=== PATIENT | female | born 1990 ===

== ENCOUNTER 2018-02-01 15:19 | Emergency (ER) | payer SELFPAY ==
[2018-02-01 16:02] VITALS: BP 119/66
--- NOTE | 2018-02-01 18:02 | Emergency Department Report ---
ED Extremity Problem HPI - General Chief complaint: Extremity Injury, Lower Stated complaint: SWOLLEN KNEE Time Seen by Provider: 02/01/18 17:57 Source: patient, family Mode of arrival: Ambulatory Limitations: No Limitations - History of Present Illness Initial comments: Patient reports that she is having an left knee pain and ankle pain and when she woke up this morning it was swollen. She said her ankle is better but her knee swollen and painful. She said this started over the last 2 days after she started a new job and she has to walk on her feet a lot this morning. She says she woke up this morning and her knee was swollen painful pain at 7 out of 10. Pain is worse with movement and better with rest. No medication taken for pain. Denies any swelling of legs. Denies any radiation of pain. Pain is sharp and throbbing at times. Denies any trauma. Denies any fever or chills or any redness to her knee. MD Complaint: joint swelling, joint paint Onset/Timin Location: left, lower extremity, knee History of Same: No -: No myalgia, Yes arthralgia, No fever, No associated dyspnea, No associated chest pain Radiation: none Severity scale (0 -10): 8 Quality: aching, other (throbbing at times) Consistency: intermittent Improves with: rest Worsens with: weight bearing, walking, exertion Associated Symptoms: arthralgias. denies: chest pain, shortness of breath, fever, myalgias, rash - Related Data Previous Rx's Medication Instructions Recorded Last Taken Type Ibuprofen [Motrin] 600 mg PO Q8H PRN #12 tablet 02/01/18 Unknown Rx Allergies Allergy/AdvReac Type Severity Reaction Status Date / Time No Known Allergies Allergy Unverified 02/01/18 18:02 ED Review of Systems ROS: Stated complaint: SWOLLEN KNEE Other details as noted in HPI Constitutional: denies: chills, fever ENT: denies: throat pain Respiratory: denies: cough, shortness of breath, SOB with exertion, SOB at rest , stridor, wheezing Cardiovascular: denies: chest pain, palpitations, edema, syncope Gastrointestinal: denies: abdominal pain, nausea, vomiting, diarrhea Genitourinary: denies: urgency, dysuria, discharge Musculoskeletal: joint swelling, arthralgia. denies: back pain, myalgia Skin: denies: rash, lesions Neurological: denies: headache, weakness, numbness, paresthesias, abnormal gait , vertigo ED Past Medical Hx - Past Medical History Previous Medical History?: Yes Additional medical history: L2 disc compressed per pt - Surgical History Past Surgical History?: No - Family History Family history: hypertension - Social History Smoking Status: Current Every Day Smoker Substance Use Type: None, Marijuana - Medications Home Medications: Home Medications Medication Instructions Recorded Confirmed Last Taken Type Ibuprofen [Motrin] 600 mg PO Q8H PRN #12 tablet 02/01/18 Unknown Rx ED Physical Exam - General Limitations: No Limitations General appearance: alert, in no apparent distress - Head Head exam: Present: atraumatic, normocephalic, normal inspection - Eye Eye exam: Present: normal appearance, PERRL, EOMI. Absent: nystagmus, periorbital swelling, periorbital tenderness Pupils: Present: normal accommodation - ENT ENT exam: Present: normal exam, normal orophraynx, mucous membranes moist - Neck Neck exam: Present: normal inspection - Respiratory Respiratory exam: Present: normal lung sounds bilaterally. Absent: respiratory distress, chest wall tenderness - Cardiovascular Cardiovascular Exam: Present: regular rate, normal rhythm, normal heart sounds. Absent: systolic murmur, diastolic murmur - Extremities Exam Extremities exam: Present: normal inspection, full ROM, normal capillary refill , other (No cce. + 2 pulses in all extremities, no neurovascular compromise). Absent: tenderness, pedal edema, joint swelling, calf tenderness - Expanded Lower Extremity Exam Left Hip exam: Present: normal inspection, full ROM, pelvic stability. Absent: tenderness, swelling, abrasion, laceration, ecchymosis, deformity, crepidus, dislocation, erythema, external rotation, internal rotation, shortening Upper Leg exam: Present: normal inspection, full ROM. Absent: tenderness, swelling, abrasion, laceration, ecchymosis, deformity, crepidus, dislocation, erythema Knee exam: Present: normal inspection, full ROM, full knee extension. Absent: tenderness, swelling, abrasion, laceration, ecchymosis, deformity, crepidus, dislocation, erythema, effusion, pain w/ pronation/supination, posterior draw sign, pain/laxity with valgus, pain/laxity with varus Lower Leg exam: Present: normal inspection, full ROM. Absent: tenderness, swelling, abrasion, laceration, ecchymosis, deformity, crepidus, dislocation, erythema, palpable cord, Sudarshan's sign Ankle exam: Present: normal inspection, full ROM. Absent: tenderness, swelling , abrasion, laceration, ecchymosis, deformity, crepidus, dislocation, erythema, anterior draw sign Foot/Toe exam: Present: normal inspection, full ROM. Absent: tenderness, swelling, abrasion, laceration, ecchymosis, deformity, crepidus, dislocation, erythema, amputation, puncture wound, foreign body, calcaneal tenderness, tenderness at base of 5th metatarsal, nail avulsion, subungual hematoma Neuro vascular tendon exam: Present: no vascular compromise. Absent: pulse deficit, abnormal cap refill, motor deficit, sensory deficit, tendon deficit, extremity cold to touch, pallor, abnormal 2-point discrimination, decreased fine /light touch, foot drop, peroneal nerve deficit, significant pain with passive ROM of distal joint Gait: Positive: observed and normal - Back Exam Back exam: Present: normal inspection, full ROM, other (ambulates without any difficulties). Absent: tenderness, CVA tenderness (R), CVA tenderness (L), muscle spasm, paraspinal tenderness, vertebral tenderness, rash noted - Neurological Exam Neurological exam: Present: alert, oriented X3, normal gait, reflexes normal. Absent: motor sensory deficit - Psychiatric Psychiatric exam: Present: normal affect, normal mood - Skin Skin exam: Present: warm, dry, intact, normal color. Absent: rash ED Course Vital Signs 02/01/18 15:55 Temperature 98.5 F Pulse Rate 76 Respiratory 17 Rate Blood Pressure 119/66 O2 Sat by Pulse 99 Oximetry - Reevaluation(s) Reevaluation #1: 02/01/18 20:21 Patient given Motrin 800 mg by mouth for left knee pain. Pain has resolved ED Medical Decision Making - Radiology Data Radiology results: report reviewed X-ray three-view left knee dictated by radiologist and report reviewed by myself. Please see report below. Patient: LOGAN MULLEN MR#: [id number] : 1990 Acct:[id number] Age/Sex: 27 / F ADM Date: 02/01/18 Loc: ED Attending Dr: Ordering Physician: CHIOMA TATE Date of Service: 02/01/18 Procedure(s): XR knee 3V LT Accession Number(s): [id number] cc: CHIOMA TATE Fluoro Time In Minutes: FINAL REPORT EXAM: XR KNEE 3V LT HISTORY: left knee pain and swelling TECHNIQUE: Left knee three views PRIORS: None. FINDINGS: No fracture is identified. No dislocation seen. No evidence of joint effusion. Patella demonstrates normal positioning. No acute bony abnormality identified. IMPRESSION: Negative knee series Transcribed By: LI Dictated By: LILLIAM BRAVO MD Electronically Authenticated By: LILLIAM BRAVO MD Signed Date/Time: 02/01/181850 DD/ 50 TD/TT: 02/01/181850 - Medical Decision Making 27-year-old female presented to the emergency room report of knee pain and swelling that started 2 days ago. 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 She said her ankle was also hurting and swollen but that has resolved but her knee is still hurting. She is here to be evaluated She was seen and examined by myself and her physical exam was normal to include her knees. X-ray of her left knee was dictated by radiologist and report reviewed by myself and patient with normal exam. I discussed the patient her x- ray results and told her that exam was normal and if she continues to have knee pain she needs to follow-up with orthopedic doctor. Patient has no crepitus, effusion, erythema, swelling or tenderness to knee joints. Patient was given Motrin in the emergency room which she said helped. Assessment/plan Arthralgia left knee-x-ray with negative findings. Motrin. 800 mg by mouth given for pain which relieved her pain. And we will discharge home and Motrin I encouraged patient to exercise, educated on medication, Rice therapy and to follow-up with orthopedic doctor and she was understanding . Pt discharged home in stable condition with prescription for Motrin and to follow up with orthopedic in 2-3 days. Her pain is controlled and her vital signs are stable and she is a febrile. - Differential Diagnosis fracture, sprain, strain, dislocation, effusion, degenerative joint disease Critical care attestation.: If time is entered above; I have spent that time in minutes in the direct care of this critically ill patient, excluding procedure time. ED Disposition Clinical Impression: Arthralgia of knee, left Disposition: DC-01 TO HOME OR SELFCARE Is pt being admited?: No Does the pt Need Aspirin: No Condition: Stable Instructions: Knee Exercises (GEN), Knee Pain (ED), Arthralgia (ED) Additional Instructions: Please see discharge instruction in Rice therapy. Follow-up with orthopedic doctor in 2-3 days if you continue to have knee pain The discharge instructions on knee pain and knee exercises. Prescriptions: Ibuprofen [Motrin] 600 mg PO Q8H PRN #12 tablet PRN Reason: Pain Referrals: PRIMARY CARE, [Primary Care Provider] - 2-3 Days GEORGES VALVERDE MD [Staff Physician] - 2-3 Days Forms: Work/School Release Form(ED)
[2018-02-01] MEDS ORDERED: MOTRIN PO ONE (18:03)
--- NOTE | 2018-02-01 18:59 | XRay Report ---
FINAL REPORT EXAM: XR KNEE 3V LT HISTORY: left knee pain and swelling TECHNIQUE: Left knee three views PRIORS: None. FINDINGS: No fracture is identified. No dislocation seen. No evidence of joint effusion. Patella demonstrates normal positioning. No acute bony abnormality identified. IMPRESSION: Negative knee series
== END 2018-02-01 20:35 | disposition home or self-care (01) ==
LOC: ED 15:19
DX: M25.562 Pain in left knee (principal); F17.200 Nicotine dependence, unspecified, uncomplicated; F12.10 Cannabis abuse, uncomplicated
CPT/HCPCS: 99283

== ENCOUNTER 2018-04-27 13:40 | Emergency (ER) | payer SELFPAY ==
--- NOTE | 2018-04-27 15:32 | Emergency Department Report ---
ED Female HPI - General Chief complaint: Abdominal Pain Stated complaint: CRAMPS,SPOTTING Time Seen by Provider: 04/27/18 15:26 Source: patient Mode of arrival: Ambulatory Limitations: No Limitations - History of Present Illness Initial comments: Ms. Spicer is a healthy 28-year-old female who presents with abnormal menstrual cycle. She stated that she is 3 days late. Her period normally begins on the of the month. However she had heavy bleeding last night. Now she is no longer bleeding. She is concerned for . Mild menstrual cramps. No fever. No vomiting. No back pain. No dysuria Complaint: pelvic pain, other (abnormal menses) -: Last night Severity: mild Quality: cramping Last Menstrual Period: 03/25/18 EDC: 12/30/18 Associated Symptoms: vaginal bleeding - Related Data : 0 Previous Rx's Medication Instructions Recorded Last Taken Type Ibuprofen [Motrin] 600 mg PO Q8H PRN #12 tablet 02/01/18 Unknown Rx Allergies Allergy/AdvReac Type Severity Reaction Status Date / Time No Known Allergies Allergy Verified 04/27/18 13:51 ED Review of Systems ROS: Stated complaint: CRAMPS,SPOTTING Other details as noted in HPI Comment: All other systems reviewed and negative Constitutional: denies: fever, malaise Respiratory: denies: cough Cardiovascular: denies: chest pain ED Past Medical Hx - Past Medical History Additional medical history: L2 disc compressed per pt - Social History Smoking Status: Current Every Day Smoker Substance Use Type: None - Medications Home Medications: Home Medications Medication Instructions Recorded Confirmed Last Taken Type Ibuprofen [Motrin] 600 mg PO Q8H PRN #12 tablet 02/01/18 Unknown Rx ED Physical Exam - General Limitations: No Limitations General appearance: alert, in no apparent distress - Head Head exam: Present: atraumatic, normocephalic - Eye Eye exam: Present: normal appearance - ENT ENT exam: Present: mucous membranes moist - Neck Neck exam: Present: normal inspection. Absent: tenderness, meningismus - Respiratory Respiratory exam: Present: normal lung sounds bilaterally. Absent: respiratory distress, wheezes, rales, rhonchi - Cardiovascular Cardiovascular Exam: Present: regular rate, normal rhythm, normal heart sounds. Absent: systolic murmur, diastolic murmur, rubs, gallop - GI/Abdominal GI/Abdominal exam: Present: soft, normal bowel sounds. Absent: distended, tenderness, guarding, rebound - Extremities Exam Extremities exam: Present: normal inspection - Back Exam Back exam: Present: normal inspection - Neurological Exam Neurological exam: Present: alert, oriented X3 - Psychiatric Psychiatric exam: Present: normal affect, normal mood - Skin Skin exam: Present: warm, dry, intact, normal color. Absent: rash ED Course Vital Signs 04/27/18 13:51 Temperature 98.4 F Pulse Rate 58 L Respiratory 16 Rate Blood Pressure 113/37 O2 Sat by Pulse 99 Oximetry ED Medical Decision Making - Medical Decision Making Differential diagnoses includes versus Dysfunctional uterine bleeding. Patient will take home tests. She was given ectopic precautions. Patient given reassurance. Critical care attestation.: If time is entered above; I have spent that time in minutes in the direct care of this critically ill patient, excluding procedure time. ED Disposition Clinical Impression: Dysfunctional uterine bleeding Disposition: DC-01 TO HOME OR SELFCARE Is pt being admited?: No Does the pt Need Aspirin: No Condition: Stable Instructions: Dysfunctional Uterine Bleeding (ED) Additional Instructions: Please take home test. Referrals: [facility] [Outside] - 3-5 Days
[2018-04-27 17:33] VITALS: BP 124/64
== END 2018-04-27 17:00 | disposition home or self-care (01) ==
LOC: ED 13:40
DX: N93.8 Other specified abnormal uterine and vaginal bleeding (principal); F17.200 Nicotine dependence, unspecified, uncomplicated
CPT/HCPCS: 99282